=== PATIENT | female | born 1990 ===

== ENCOUNTER 2018-04-14 16:10 | Emergency (ER) | payer BC, MEDICAID ==
[2018-04-14 16:10] VITALS: BMI 35.2
--- NOTE | 2018-04-14 16:57 | ED PDOC ---
Arrival/HPI - General Chief Complaint: Back Pain Historian: Patient - History of Present Illness Narrative History of Present Illness (Text): 04/14/18 16:57 27 y/o female, pmh including UTI, nkda, c/o lower back pain and wanna evaluated for the lt. sided abdominal lump for a week with no fall or trauma. Pt. stated that she has lower back pain for for several days and incidentally noted to have lt. sided abdominal lump, seen by the her pmd at [facility] urgent [facility] and send her for abdominal sonogram but unable to scheduled the date. Pt. stated that she was seen at the [facility] earlier today for the same complaint, discharge home and advised to see her own pmd so she is unhappy with the service and she wants to come to the ER. Low back pain, aggravated by turning, no numbness or tingling, no urinary or bowel incontinence or retention, also stated that she has this small lump on the left sided belly. Pt. also complaining about coughing on and off x 1 week, no chest pain or shortness of breath, productive coughing, no night sweat, no rash, no other medical or psychological complaints. Past Medical History - Provider Review Nursing Documentation Reviewed: Yes - Infectious Disease Hx of Infectious Diseases: None - Tetanus Immunization Tetanus Immunization: Unknown - Reproductive Menopause: No - Past Medical History Past Medical History: No Previous - Cardiac Hx Hypertension: Yes Other/Comment: family history of HTN and High cholesterol - Pulmonary Hx Respiratory Disorders: No - Neurological Hx Neurological Disorder: No - HEENT Hx HEENT Disorder: No - Renal Hx Renal Disorder: No - Endocrine/Metabolic Hx Endocrine Disorders: No - Hematological/Oncological Hx Blood Disorders: No - Integumentary Hx Dermatological Disorder: No - Musculoskeletal/Rheumatological Hx Musculoskeletal Disorders: No Hx Falls: No - Gastrointestinal Hx Gastrointestinal Disorders: No - Genitourinary/Gynecological Hx Genitourinary Disorders: No - Psychiatric Hx Psychophysiologic Disorder: No Hx Substance Use: No Other/Comment: heavy smoker >10 cigarettes a day and drinker - Past Surgical History Past Surgical History: No Previous - Anesthesia Hx Anesthesia: No Hx Anesthesia Reactions: No Hx Malignant Hyperthermia: No - Suicidal Assessment Feels Threatened In Home Enviroment: No Family/Social History - Physician Review Nursing Documentation Reviewed: Yes Family/Social History: Unknown Family HX Smoking Status: Former Smoker Hx Alcohol Use: No Hx Substance Use: No Hx Substance Use Treatment: No Allergies/Home Meds Allergies/Adverse Reactions: Allergies No Known Allergies Allergy (Verified 07/07/14 18:09) Home Medications: Home Meds Medication Instructions Recorded Confirmed Vits96/Iron Fum/Folic 1 tab PO DAILY 10/04/14 02/14/15 [] Review of Systems - Review of Systems Constitutional: absent: Fatigue, Fevers Eyes: absent: Vision Changes ENT: absent: Hearing Changes Respiratory: absent: SOB, Cough Cardiovascular: absent: Chest Pain Gastrointestinal: absent: Abdominal Pain, Nausea, Vomiting, Anorexia Musculoskeletal: Back Pain. absent: Arthralgias Skin: absent: Rash, Pruritis, Skin Lesions Neurological: absent: Headache, Dizziness Psychiatric: absent: Anxiety, Depression, Suicidal Ideation Physical Exam Vital Signs Reviewed: Yes Vital Signs Temp Pulse Resp BP Pulse Ox 04/14/18 16:48 99.2 F 88 16 142/93 H 97 Temperature: Afebrile Blood Pressure: Normal Pulse: Regular Respiratory Rate: Normal Appearance: Positive for: Well-Appearing, Non-Toxic, Comfortable Pain Distress: Moderate Mental Status: Positive for: Alert and Oriented X 3 - Systems Exam Head: Present: Atraumatic, Normocephalic Pupils: Present: PERRL Extroacular Muscles: Present: EOMI Conjunctiva: Present: Normal Mouth: Present: Moist Mucous Membranes Neck: Present: Normal Range of Motion Respiratory/Chest: Present: Clear to Auscultation, Good Air Exchange. No: Respiratory Distress, Accessory Muscle Use Cardiovascular: Present: Regular Rate and Rhythm, Normal S1, S2. No: Murmurs Abdomen: Present: Other (lt. sided abdomen with unable to palpable any lumps with no fluctuant abscess, no rash. ). No: Tenderness, Distention, Peritoneal Signs Back: Present: Normal Inspection, Other (LS spine: mild +ttp on the rt. paraspinal muscle region, no midline tenderness or step off, no cva tenderness and rash, FROM without limitation but pain upon lateral movement, no drift, SLR test negative, no saddling gait. ). No: CVA Tenderness, Midline Tenderness, Pain with Leg Raise, Decubitus Ulcer Upper Extremity: Present: Normal Inspection, Normal ROM, NORMAL PULSES, Neurovascularly Intact. No: Cyanosis, Edema, Tenderness, Swelling, Deformity Lower Extremity: Present: Normal Inspection, NORMAL PULSES, Normal ROM, Neurovascularly Intact, Capillary Refill < 2 s. No: Edema, Tenderness, Swelling, Deformity Neurological: Present: GCS=15, CN II-XII Intact, Speech Normal, Motor Func Grossly Intact, Gait Normal, Memory Normal Skin: Present: Warm, Dry, Normal Color. No: Rashes Lymphatic: No: Cervical Adenopathy, Axillary Adenopathy, Inguinal Adenopathy Psychiatric: Present: Alert, Oriented x 3, Normal Insight, Normal Concentration Medical Decision Making ED Course and Treatment: 04/14/18 17:13 -abdominal sonogram -chest xray -toradol IM -Observe and reassess 04/14/18 18:25 -Urine hcg is negative -Abdominal sonogram: Hepatosplenomegaly. Otherwise unremarkable study. -Chest xray: No active disease. No significant interval change compared to the prior examination(s). -UA no UTI and no microscopic hematuria. -Pt. feels asymptomatic, much better, request to be discharged home. -All labs and radiology results discussed with the patient, advised to see the pmd for follow up -Discharge home with zithromax, bromkiah dm, mobic, flexeril, follow up with your own pmd and general surgeon/derm within 2 days, return to the ER for any new or worsening signs or symptoms. - RAD Interpretation Radiology Orders: -Abdominal sonogram: Date of service: 04/14/2018 HISTORY: low back pain COMPARISON: None. TECHNIQUE: Sonographic evaluation of the abdomen. FINDINGS: LIVER: Measures 17.6 cm. Patent portal vein. Portal venous flow: Hepatopetal. Unremarkable echogenicity of the liver parenchyma. No mass. No intrahepatic bile duct dilatation. GALLBLADDER: Unremarkable. No gallstones. COMMON BILE DUCT: Measures 2.1 mm. No stones. No dilatation. PANCREAS: Unremarkable as visualized. No mass. No ductal dilatation. RIGHT KIDNEY: Measures 4.6 x 12.5cm. Normal echogenicity. No calculus, mass, or hydronephrosis. LEFT KIDNEY: Measures 5.3 x 14cm. Normal echogenicity. No calculus, mass, or hydronephrosis. SPLEEN: Mild splenomegaly. Orthogonal measurements 6.4 x 4.5 x 13.3 AORTA: No aneurysmal dilatation. IVC: Unremarkable. OTHER FINDINGS: On physical examination there is a "lump" lateral to the hip. No ultrasound correlate. IMPRESSION: Hepatosplenomegaly. Otherwise unremarkable study. -Chest xray: Date of service: 04/14/2018 HISTORY: cough COMPARISON: 07/07/2014 TECHNIQUE: Chest PA and lateral FINDINGS: LUNGS: No active pulmonary disease. PLEURA: No significant pleural effusion identified. No pneumothorax apparent. CARDIOVASCULAR: No aortic atherosclerotic calcification present. Normal cardiac size. No pulmonary vascular congestion. OSSEOUS STRUCTURES: No significant abnormalities. VISUALIZED UPPER ABDOMEN: Normal. OTHER FINDINGS: None. IMPRESSION: No active disease. No significant interval change compared to the prior examination(s). Supervisor Tumblers: Radiologist - PA / DIELECTRIC PRESS OPERATOR / Resident Statement / has reviewed & agrees with the documentation as recorded. Disposition/Present on Arrival - Present on Arrival Any Indicators Present on Arrival: No History of DVT/PE: No History of Uncontrolled Diabetes: No Urinary Catheter: No History of Decub. Ulcer: No History Surgical Site Infection Following: None - Disposition Have Diagnosis and Disposition been Completed?: Yes Diagnosis: Low back pain, URI (upper respiratory infection) Disposition Time: 18:26 Patient Plan: Discharge Patient Problems: Current Active Problems Problem Status Onset Low back pain Acute URI (upper respiratory infection) Acute Condition: GOOD Additional Instructions: -Discharge home with zithromax, bromfed dm, mobic, flexeril, follow up with your own pmd and general surgeon/derm within 2 days, return to the ER for any new or worsening signs or symptoms. Prescriptions: Azithromycin [Zithromax] 250 mg PO DAILY #6 tab Brompheniramine/Pseudoephed/Dm [Bromfed Dm Cough 118 ml] 10 ml PO QID PRN #240 ml PRN Reason: Other Cyclobenzaprine [Cyclobenzaprine HCl] 10 mg PO TID PRN #21 tab PRN Reason: Other Meloxicam [Mobic] 15 mg PO DAILY PRN #14 tab PRN Reason: Other Referrals: Sathish Adam MD [Staff Provider] - Follow up with primary Zbigniew Pinto MD [Staff Provider] - Follow up with primary Forms: [employer] (Romanian), WORK NOTE
[2018-04-14 17:50] LABS: URINE APPEARANCE CLEAR (CLEAR); URINE BILIRUBIN NEGATIVE (NEGATIVE); URINE BLOOD TRACE-LYSED (NEGATIVE); URINE COLOR YELLOW (YELLOW); URINE GLUCOSE (UA) NEGATIVE (NEGATIVE); URINE LEUKOCYTE ESTERASE NEGATIVE Leu/uL (NEGATIVE); URINE PROTEIN NEGATIVE mg/dL (<30 mg/dL); URINE UROBILINOGEN 0.2 E.U./dL (<1 E.U./dL)
[2018-04-14 17:54] LABS: URINE RBC 0 - 2 /hpf (0-2); URINE WBC NEGATIVE /hpf (0-6)
--- NOTE | 2018-04-14 18:20 | US ---
Date of service: 04/14/2018 HISTORY: low back pain COMPARISON: None. TECHNIQUE: Sonographic evaluation of the abdomen. FINDINGS: LIVER: Measures 17.6 cm. Patent portal vein. Portal venous flow: Hepatopetal. Unremarkable echogenicity of the liver parenchyma. No mass. No intrahepatic bile duct dilatation. GALLBLADDER: Unremarkable. No gallstones. COMMON BILE DUCT: Measures 2.1 mm. No stones. No dilatation. PANCREAS: Unremarkable as visualized. No mass. No ductal dilatation. RIGHT KIDNEY: Measures 4.6 x 12.5cm. Normal echogenicity. No calculus, mass, or hydronephrosis. LEFT KIDNEY: Measures 5.3 x 14cm. Normal echogenicity. No calculus, mass, or hydronephrosis. SPLEEN: Mild splenomegaly. Orthogonal measurements 6.4 x 4.5 x 13.3 AORTA: No aneurysmal dilatation. IVC: Unremarkable. OTHER FINDINGS: On physical examination there is a "lump" lateral to the hip. No ultrasound correlate. IMPRESSION: Hepatosplenomegaly. Otherwise unremarkable study.
--- NOTE | 2018-04-14 18:43 | RAD ---
Date of service: 04/14/2018 HISTORY: cough COMPARISON: 07/07/2014 TECHNIQUE: Chest PA and lateral FINDINGS: LUNGS: No active pulmonary disease. PLEURA: No significant pleural effusion identified. No pneumothorax apparent. CARDIOVASCULAR: No aortic atherosclerotic calcification present. Normal cardiac size. No pulmonary vascular congestion. OSSEOUS STRUCTURES: No significant abnormalities. VISUALIZED UPPER ABDOMEN: Normal. OTHER FINDINGS: None. IMPRESSION: No active disease. No significant interval change compared to the prior examination(s).
[2018-04-14 19:12] VITALS: BP 135/88; PULSE 78; RESP 18; TEMP 98.2; O2SAT 98
== END 2018-04-14 19:12 | disposition home or self-care (01) ==
LOC: ED 16:10
DX: J06.9 Acute upper respiratory infection, unspecified (principal); M54.5 Low back pain; I10 Essential (primary) hypertension; F17.210 Nicotine dependence, cigarettes, uncomplicated
CPT/HCPCS: 71046; 76700; 81001; 96372; 99283; J1885

== ENCOUNTER 2018-06-09 13:38 | Inpatient (IN) | payer MEDICAID | END 2018-06-14 15:37 | disposition home or self-care (01) | DRG 430 | LOC: PSYC 06-12 00:06 → ED 13:38 → ERH 17:32 → PSYC 18:43 | DX: F33.2 Major depressive disorder, recurrent severe without psychotic features (principal); R45.851 Suicidal ideations; F41.0 Panic disorder [episodic paroxysmal anxiety]; F12.10 Cannabis abuse, uncomplicated; I10 Essential (primary) hypertension; E78.00 Pure hypercholesterolemia, unspecified; F17.210 Nicotine dependence, cigarettes, uncomplicated; D72.829 Elevated white blood cell count, unspecified; E66.01 Morbid (severe) obesity due to excess calories; Z68.41 Body mass index [BMI] 40.0-44.9, adult ==